=== PATIENT | male | born 1975 | race Caucasian/White ===

== ENCOUNTER → 2016-06-07 | Outpatient (CLI) | payer BC | END | disposition home or self-care (01) | LOC: HKI 08:48 | PROVIDERS: ATTEND Orthopaedic Surgery | DX: M16.12 Unilateral primary osteoarthritis, left hip (principal); M25.752 Osteophyte, left hip; M25.751 Osteophyte, right hip; M25.852 Other specified joint disorders, left hip | CPT/HCPCS: 73522; G0463 ==